=== PATIENT | male | born 1995 | race African-American/Black ===

== ENCOUNTER 2016-10-21 16:41 | Emergency (ER) | payer SELFPAY ==
[~2016-10-21] VITALS: Ht 182.9 cm; Wt 68.0 kg
--- NOTE | ~2016-10-21 | CR173 ---
[facility] A Service of [facility] RADIOLOGY TEXT RESULTS PATIENT: EDITH PINEDO LOCATION: SED : [birth year] UNIT #: [id number] AGE: [address]: MAGED RICCI SEX: M ORDER DR: [id number] [place] [id number] E MR#: [id number] Acc #: [id number] NAME: EDITH PINEDO : 1995 SEX: M STUDY DATE/TIME: 10/21/2016 17:24 UNIT: SED ROOM: STUDY DESCRIPTION: CR Knee 3 Views Rt Attending Physician: Maged Ricci Ordering Physician: Staff Doctor Not On Primary Care Physician: No Primary Care Physician MEDICAL IMAGING REPORT This report is preliminary unless electronic signature is present. EXAM Right knee INDICATION Right knee pain status post fall while playing basketball. FINDINGS 3 views of the right knee without comparison. There is no acute fracture, dislocation, or effusion. No foreign body. IMPRESSION Negative right knee. Dictated by... Hal Avila M.D. THIS IS AN ELECTRONICALLY VERIFIED REPORT Hal Avila M.D. at 10/23/2016 10:30 AM JUAN/loretta TD: 10/22/2016 08:38 JOB #: [id number] MEDICAL IMAGING REPORT Page 1 of 1
== END 2016-10-21 18:50 | disposition home or self-care (01) ==
LOC: SED 16:41
DX: S80.01XA Contusion of right knee, initial encounter (principal); S90.421A Blister (nonthermal), right great toe, initial encounter; W18.39XA Other fall on same level, initial encounter
CPT/HCPCS: 73562; 99283